=== PATIENT | male | born 1980 | race Caucasian/White ===

== ENCOUNTER 2017-07-09 14:49 | Emergency (ER) | payer MEDICAID ==
[~2017-07-09] VITALS: Ht 175.3 cm; Wt 78.0 kg
[2017-07-09 15:19] VITALS: BP 128/88
== END 2017-07-09 15:31 | disposition home or self-care (01) ==
LOC: ED 15:15
DX: F10.10 Alcohol abuse, uncomplicated (principal); F12.10 Cannabis abuse, uncomplicated; F15.10 Other stimulant abuse, uncomplicated; F41.9 Anxiety disorder, unspecified; F31.9 Bipolar disorder, unspecified
CPT/HCPCS: 99283